=== PATIENT | female | born 1990 | race Caucasian/White ===

== ENCOUNTER 2016-06-03 13:23 | Emergency (ER) | payer BC ==
[2016-06-03 14:21] VITALS: BP 105/61
--- NOTE | 2016-06-03 14:34 | UC ---
UC General HPI - HPI Summary HPI Summary: complaint of right breast pain and into her right armpit that started this morning sore throat started 4 days ago-denies cough, nasal congestion ,headache-close contacts with strep fever of 101 today- took motrin without relief currently concerned about her wants it checked denies headaches, edema - History of Current Complaint Chief Complaint: Alexandra Stated Complaint: RIGHT BREAST COMPLAINT Time Seen by Provider: 06/03/16 14:26 Hx Obtained From: Patient - Allergy/Home Medications Allergies/Adverse Reactions: Allergies Allergy/AdvReac Type Severity Reaction Status Date / Time Cefaclor [From [facility]] Allergy Hives Verified 06/03/16 14:21 Sulfa Antibiotics Allergy Itching Verified 06/03/16 14:21 Home Medications: Home Medications Ibuprofen TAB* [Motrin TAB* 600 MG] 600 mg PO Q8H PRN 06/03/16 [History Confirmed 06/03/16] PMH/Surg Hx/FS Hx/Imm Hx Previously Healthy: Yes - Surgical History Surgical History: Yes Surgery Procedure, Year, and Place: x2 - Family History Known Family History: Negative: Cardiac Disease, Hypertension, Diabetes - Social History Occupation: Unemployed Lives: With Family Alcohol Use: None Substance Use Type: None Smoking Status (MU): Never Smoked Tobacco Review of Systems Constitutional: Fever, Chills, Fatigue Skin: Negative Eyes: Negative ENT: Sore Throat Respiratory: Negative Cardiovascular: Negative Gastrointestinal: Negative Genitourinary: Negative Motor: Negative Neurovascular: Negative Musculoskeletal: Negative Neurological: Negative Psychological: Negative All Other Systems Reviewed And Are Negative: Yes Physical Exam Triage Information Reviewed: Yes Appearance: Ill-Appearing, Pain Distress Vital Signs: Initial Vital Signs Temp 99.6 F 06/03/16 14:16 Pulse 96 06/03/16 14:16 Resp 18 06/03/16 14:16 BP 105/61 06/03/16 14:16 Pulse Ox 98 06/03/16 14:16 Vital Signs Reviewed: Yes Eyes: Positive: Conjunctiva Clear ENT: Positive: Pharyngeal erythema, Nasal congestion Neck: Positive: No Lymphadenopathy Respiratory: Positive: Lungs clear, Normal breath sounds, No respiratory distress, No accessory muscle use Cardiovascular: Positive: RRR, No Murmur, Pulses Normal Abdomen Description: Positive: Nontender, Soft. Negative: Distended Bowel Sounds: Positive: Present Musculoskeletal: Positive: No Edema Neurological: Positive: Alert Psychological Exam: Normal Skin: Positive: Other - surgical incision well approximated no erythema or discharge entire right breast erythematous and warm to the touch Course/Dx - Course Course Of Treatment: exam completed. positv efo strep and mastitis. will rx for doxacillin - pt has taken peniicillin and amoxicillin in the past. followup with [facility] - Differential Dx - Multi-Symptom Provider Diagnoses: mastitis right breat. strep pharyngitis Discharge - Discharge Plan Condition: Stable Disposition: HOME Prescriptions: Dicloxacillin CAP* [Dynapen CAP*] 500 mg PO QID #40 cap Patient Education Materials: Mastitis (ED) Referrals: Chon Rogers DO [Primary Care Provider] - Additional Instructions: Please take antibiotic as directed Increase fluids and rest Take ibuprofen for fever or pain Please review your discharge instructions. If your symptoms do not improve please call your primary care provider or return to urgent care.
== END 2016-06-03 14:59 | disposition home or self-care (01) ==
LOC: UCCORT 13:23
DX: N61.0 Mastitis without abscess (principal); J02.0 Streptococcal pharyngitis; Z88.1 Allergy status to other antibiotic agents; Z88.2 Allergy status to sulfonamides
CPT/HCPCS: 87651; 99202; G0463

== ENCOUNTER 2017-07-07 07:50 | Emergency (ER) | payer BC ==
[2017-07-07 08:15] VITALS: BP 101/60
--- NOTE | 2017-07-07 08:24 | UC ---
Throat Pain/Nasal [place] HPI - HPI Summary HPI Summary: sore throat x 1 days high fever , pnd , no cough , no nasal congestion + body aches and fatigue - History of Current Complaint Chief Complaint: UCGeneralIllness Stated Complaint: SORE THROAT FEVER Time Seen by Provider: 07/07/17 08:03 Hx Obtained From: Patient Hx Last Menstrual Period: 06/13/17 Onset/Duration: Gradual Onset, Lasting Days - 1, Still Present Severity: Severe Pain Intensity: 8 Cough: None Associated Signs & Symptoms: Positive: Fever. Negative: Dysphagia, FB Sensation , Drooling, Wheezing, Hoarseness, Sinus Discomfort, Nasal Discharge, Vomiting, Rash - Allergies/Home Medications Allergies/Adverse Reactions: Allergies Allergy/AdvReac Type Severity Reaction Status Date / Time cefaclor [From [facility]] Allergy Hives Verified 07/07/17 08:10 Sulfa (Sulfonamide Allergy Itching Verified 07/07/17 08:10 Antibiotics) Home Medications: Home Medications Ibuprofen TAB* [Advil TAB*] 600 mg PO Q6H PRN 07/07/17 [History Confirmed ] PMH/Surg Hx/FS Hx/Imm Hx Previously Healthy: Yes - Surgical History Surgical History: Yes Surgery Procedure, Year, and Place: x2 - Family History Known Family History: Negative: Cardiac Disease, Hypertension, Diabetes - Social History Alcohol Use: Weekly Substance Use Type: None Smoking Status (MU): Former Smoker Length of Time of Smoking/Using Tobacco: 1/2 PPD x 12 Years When Did the Patient Quit Smoking/Using Tobacco: 2015 Review of Systems Constitutional: Fever, Chills, Fatigue Skin: Negative Eyes: Negative ENT: Sore Throat Respiratory: Negative Cardiovascular: Negative Gastrointestinal: Negative Genitourinary: Negative Musculoskeletal: Myalgia Is Patient Immunocompromised?: No All Other Systems Reviewed And Are Negative: Yes Physical Exam Triage Information Reviewed: Yes Appearance: Well-Appearing, No Pain Distress, Well-Nourished Vital Signs: Initial Vital Signs Temp 99 F 07/07/17 08:08 Pulse 86 07/07/17 08:08 Resp 16 07/07/17 08:08 BP 101/60 07/07/17 08:08 Pulse Ox 99 07/07/17 08:08 Vital Signs Reviewed: Yes Eye Exam: Normal Eyes: Positive: Conjunctiva Clear ENT: Positive: Normal ENT inspection, Hearing grossly normal, Pharyngeal erythema, TMs normal. Negative: Nasal congestion, Nasal drainage, Tonsillar swelling, Tonsillar exudate Neck exam: Normal Neck: Positive: Supple, Nontender, No Lymphadenopathy Respiratory: Positive: Chest non-tender, Lungs clear, Normal breath sounds Cardiovascular: Positive: RRR, No Murmur, Pulses Normal Skin Exam: Normal Throat Pain/Nasal Course/Dx - Differential Dx/Diagnosis Provider Diagnoses: Strep pharyngitis Discharge - Sign-Out/Discharge Documenting (check all that apply): Discharge/Admit/Transfer - Discharge Plan Condition: Stable Disposition: HOME Prescriptions: Amoxicillin PO (*) [Amoxicillin 875 MG (*)] 875 mg PO BID #20 tab Patient Education Materials: Strep Throat (ED) Referrals: Chon Rogers DO [Primary Care Provider] - If Needed - Billing Disposition and Condition Condition: STABLE Disposition: HOME
== END 2017-07-07 08:38 | disposition home or self-care (01) ==
LOC: UCCORT 07:50
DX: J02.0 Streptococcal pharyngitis (principal); Z88.2 Allergy status to sulfonamides; Z87.891 Personal history of nicotine dependence
CPT/HCPCS: 87651; 99212; G0463